=== PATIENT | female | born 1990 | race Caucasian/White ===

== ENCOUNTER 2021-05-29 12:47 | Emergency (ER) | payer MEDICAID ==
[~2021-05-29] VITALS: Ht 137.2 cm; Wt 63.5 kg
[2021-05-29 12:54] VITALS: BP 125/86
--- NOTE | 2021-05-29 13:11 | NUR ---
PA Guy at bedside to assess pt
[2021-05-29] MEDS ORDERED: HYDROcodone/APAP 7.5/325 MG 1 TAB PO ONE (13:15)
[2021-05-29] MEDS ORDERED: ONDANSETRON 4 MG ODT PO ONE (13:15)
[2021-05-29] MEDS ORDERED: KETOROLAC 30 MG/ML VIAL IM ONE (13:15)
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
--- NOTE | 2021-05-29 13:22 | NUR ---
Pt taken to radiology at this time
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
--- NOTE | 2021-05-29 13:50 | NUR ---
IV ESTABLISHED AND BLOOD COLLECTED
[2021-05-29] MEDS ORDERED: LIDOCAINE 2% 1000 MG/50 ML VIAL INJ ONE (13:55)
[2021-05-29] MEDS ORDERED: BUPIVACAINE/DEXT 0.75% SPINAL 2 ML AMP INJ ONE (13:55)
[2021-05-29] MEDS ORDERED: fentaNYL citrate 0.05 MG/ML VIAL IVP ONE ×2 (14:00→14:30)
[2021-05-29] MEDS ORDERED: fentaNYL citrate 0.05 MG/ML VIAL ONE (14:01)
--- NOTE | 2021-05-29 14:16 | NUR ---
Timeout performed before procedure initiated, consent verified. Addendum: 05/29/21 at 1931 by [facility] Timeout performed before procedure initiated, consent verified. site marked at this time. Dr Rice to perform procedure withfermín Borja RN, Galina GARDNER and Brooks SAUNDERS present.
[2021-05-29] MEDS ORDERED: LORazepam 2 MG/ML VIAL ONE (14:17)
[2021-05-29] MEDS ORDERED: LORazepam 2 MG/ML VIAL IVP ONE (14:18)
[2021-05-29 14:35] LABS: ANION GAP 22.6 (8-16); CARBON DIOXIDE 16.4 mmol/L (21-32); CREATININE 0.9 mg/dL (0.6-1.3); TOTAL BILIRUBIN 0.3 mg/dL (0.0-1.0)
--- NOTE | 2021-05-29 14:40 | NUR ---
Procedure completed at this time. Chest tube to suction per md Rice order. Pt reports decrease in pain and discomfort. Total EBL during procedure: 200CC. drainage in CT drainage container 800cc. Gabriel score: 14. VSS. Pt AOX4. Resp even and unlabored. SP02 sat 98% on 6LPM VNC.
[2021-05-29 14:43] LABS: HEMATOCRIT 32.6 % (36-48); HEMOGLOBIN 10.8 g/dL (12.0-16.0); MEAN CORPUSCULAR HEMOGLOBIN 28 pg (27-31); MEAN CORPUSCULAR HGB CONC 33 g/dL (33-37); MEAN CORPUSCULAR VOLUME 84.4 fL (80-94); PLATELET COUNT (AUTO) 487 K/uL (140-450); RED BLOOD CELL COUNT(AUTO) 3.87 MIL/uL (4.20-5.40); RED CELL DISTRIBUTION WIDTH 15.6 % (11.6-13.7); WHITE BLOOD COUNT (AUTO) 21.5 K/uL (4.8-10.8)
--- NOTE | 2021-05-29 14:48 | NUR ---
Patient to be transferred to [facility]. Is being transferred due to HIGHER LEVEL OF CARE. Receiving facility has accepting physician and available space. ER physician has signed transfer form. Patient or responsible libertarian has agreed to transfer and signed form. Patient belongings inventoried and will be sent with patient. Copy of nursing notes, lab reports, EKG, Physicians Orders and X-rays to be sent with patient. Report called to KENDRA BOBBY at receiving facility. [facility] ambulance service has been called for transfer. ETA is [id number].
[2021-05-29 15:03] LABS: LYMPHOCYTES % (MANUAL) 5 % (20-46); PROMYELOCYTES % 1 % (0-0)
[2021-05-29 15:15] VITALS: BP 122/74
--- NOTE | 2021-05-29 15:15 | NUR ---
[facility] AT BEDSIDE
== END 2021-05-29 15:15 | disposition short-term general hospital (02) ==
LOC: MED 12:47
DX: S27.1XXA Traumatic hemothorax, initial encounter (principal); D72.829 Elevated white blood cell count, unspecified; G43.909 Migraine, unspecified, not intractable, without status migrainosus; Z88.8 Allergy status to other drugs, medicaments and biological substances; W01.0XXA Fall on same level from slipping, tripping and stumbling without subsequent striking against object, initial encounter; Y93.89 Activity, other specified; Y92.89 Other specified places as the place of occurrence of the external cause; Y99.8 Other external cause status
CPT/HCPCS: 36415; 71045; 71101; 80053; 85025; 96372; 96374; 96375; 99291; J1885; J2001; J2060; J3010; J3490; Q0092; Q0162; 31500